=== PATIENT | female | born 1940 | race Caucasian/White ===

== ENCOUNTER 2017-06-06 13:54 | Emergency (ER) | payer MEDICARE ==
[2017-06-06 14:34] VITALS: BP 142/90
--- NOTE | 2017-06-06 15:51 | RAD ---
HISTORY: Leg edema COMPARISONS: September 12, 2015 VIEWS: 4: Frontal dual-energy and lateral views of the chest. FINDINGS: CARDIOMEDIASTINAL SILHOUETTE: The aorta is tortuous. This is stable. The cardiomediastinal silhouette is otherwise unremarkable. KE: The ke are normal. PLEURA: The costophrenic angles are sharp. No pleural abnormalities are noted. LUNG PARENCHYMA: The lungs are clear. ABDOMEN: The upper abdomen is clear. There is no subphrenic gas. BONES AND SOFT TISSUES: No bone or soft tissue abnormalities are noted. OTHER: None. IMPRESSION: NO ACTIVE CARDIOPULMONARY DISEASE.
--- NOTE | 2017-06-06 15:56 | UC ---
Lower Extremity/Ankle HPI - HPI Summary HPI Summary: 77 yo female with mildly painful edema of feet and ankles x 3 weeks no CP or SOB unsure it she has gained wt - History of Current Complaint Chief Complaint: UCLowerExtremity Stated Complaint: SWOLLEN FEET Time Seen by Provider: 06/06/17 15:13 Hx Obtained From: Patient Hx Last Menstrual Period: post menopausal Onset/Duration: Gradual Onset, Lasting Weeks Severity Initially: Mild Severity Currently: Moderate Pain Intensity: 2 Pain Scale Used: 0-10 Numeric Aggravating Factor(s): Standing, Ambulation Alleviating Factor(s): Elevation Able to Bear Weight: Yes - Allergies/Home Medications Allergies/Adverse Reactions: Allergies Allergy/AdvReac Type Severity Reaction Status Date / Time Lisinopril Allergy Unknown Verified 06/06/17 14:17 Reaction Details Statins Allergy Unknown Verified 06/06/17 14:17 Reaction Details ENVIRONMENTAL/SEASONAL Allergy Congestion Uncoded 06/06/17 14:17 HAYFEVER Home Medications: Home Medications Acetaminophen [8 Hour Arthritis Pain Rel] 650 mg PO Q8HR PRN 06/06/17 [History Confirmed 06/06/17] Calcium W/ Magnesium [Calcium Magnesium 750] 2 tab PO DAILY WITH MEAL 06/06/17 [ History Confirmed 06/06/17] DULoxetine DR CAP* [Cymbalta CAP*] 30 mg PO DAILY 06/06/17 [History Confirmed ] PMH/Surg Hx/FS Hx/Imm Hx Previously Healthy: Yes - 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 CATARCATS SURGERY BOTH. TONSILECTOMY. 3 JOINT SURGERIES-HIPS AND KNEE - Family History Known Family History: Positive: Hypertension - Social History Alcohol Use: None Substance Use Type: None Smoking Status (MU): Never Smoked Tobacco - Immunization History Most Recent Influenza Vaccination: 2017 Most Recent Tetanus Shot: 2011 Most Recent Pneumonia Vaccination: 2014 Review of Systems Constitutional: Negative Skin: Negative Eyes: Negative ENT: Negative Respiratory: Negative Cardiovascular: Negative Gastrointestinal: Negative Genitourinary: Negative Motor: Negative Neurovascular: Negative Musculoskeletal: Edema Neurological: Negative Psychological: Negative Is Patient Immunocompromised?: No All Other Systems Reviewed And Are Negative: Yes Physical Exam Triage Information Reviewed: Yes Appearance: Well-Appearing, No Pain Distress, Well-Nourished, Other: - BMI 43 Vital Signs: Initial Vital Signs Temp 97.9 F 06/06/17 14:24 Pulse 103 06/06/17 14:24 Resp 18 06/06/17 14:24 BP 142/90 06/06/17 14:24 Pulse Ox 95 06/06/17 14:24 Vital Signs Reviewed: Yes Eyes: Positive: Conjunctiva Clear ENT: Positive: Hearing grossly normal, Uvula midline. Negative: Nasal congestion, Nasal drainage Neck: Positive: Supple, Nontender, No Lymphadenopathy, Other: - no JVD Respiratory: Positive: Lungs clear, Normal breath sounds, No respiratory distress, No accessory muscle use Cardiovascular: Positive: RRR, No Murmur Musculoskeletal: Positive: Edema @ - pre tibial edema Neurological: Positive: Alert Psychological Exam: Normal Skin Exam: Normal Diagnostics - Radiology No standard instances Xray Interpretation: No Acute Changes Radiology Interpretation Completed By: Radiologist Lower Extremity Course/Dx - Differential Dx/Diagnosis Provider Diagnoses: lower extremity edema of uncertain cause Discharge - Discharge Plan Condition: Stable Disposition: HOME Prescriptions: Furosemide TAB* [Lasix TAB*] 20 mg PO DAILY #5 tab Patient Education Materials: Edema (ED) Referrals: Soraya Hitchcock MD [Primary Care Provider] - 3 Days Additional Instructions: blood work pending TO ER FOR NEW OR WORSENING SYMTPOMS
[2017-06-06 18:56] LABS: BUN/Creatinine Ratio 28.2 (8-20); Calcium 9.3 mg/dL (8.6-10.3); EGFR African American 92.6 (>60); Globulin 2.3 g/dL (2-4); Potassium 4.5 mmol/L (3.5-5.0); Total Bilirubin 0.3 mg/dL (0.2-1.0); Total Protein 6.3 g/dL (6.4-8.9)
--- NOTE | 2017-06-07 08:19 | UC ---
Progress - Progress Note Progress Note: 06/07/17: CMP out of normal range included: 28.2 BUN/Creatinine and low (minimally) Total Protein. Patient scheduled for followup. On five days of low dose Lasix. Potassium is within normal limits at 4.5. CALL PATIENT TO INFORM HER THAT LAB RESULTS SHOWED A COUPLE OF READINGS THAT WERE SLIGHTLY OUT OF NORMAL RANGE BUT NOTHING THAT COULDN'T WAIT AND BE DISCUSSED WITH HER PROVIDER WITHIN THE NEXT 5 DAYS. CHECK ON EDEMA AND BREATHING. FOLLOW UP NOW IF ANY ACUTE PROBLEMS. Cedrick Denson MD
== END 2017-06-06 15:52 | disposition home or self-care (01) ==
LOC: UCEAST 13:54
DX: R60.9 Edema, unspecified (principal)
CPT/HCPCS: 36415; 71020; 80053; 99212; G0463

== ENCOUNTER 2017-12-17 07:30 | Inpatient (IN) | payer MEDICARE ==
--- NOTE | 2017-12-05 21:48 | HP ---
PREOPERATIVE HISTORY AND PHYSICAL: DATE OF ADMISSION/SURGERY: 12/17/17 DATE OF OFFICE VISIT: 12/04/17 ATTENDING SURGEON: Dr. Daisy Gavin.* (DICTATED BY LUCY CONSTANTINO) PROCEDURE: Left total shoulder reverse. CHIEF COMPLAINT: Left shoulder. HISTORY OF PRESENT ILLNESS: Rochelle is a 77-year-old female, who presents to the clinic for left shoulder pain due to end-stage osteoarthritis. She has failed conservative measures to include injections and has therefore agreed to undergo a left total shoulder reverse on 12/17/[address] Gavin. PAST MEDICAL HISTORY: History of DVT after a fall in May 2017, she went off blood thinners 3 months ago in August; hypertension; osteoarthritis; colon polyps; glucose intolerance; bipolar disorder; history of shingles; carotid disease; incontinence. 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 The patient denies prior complications with anesthesia. MEDICATIONS: 1. Ketoconazole 2% apply thin film twice daily. 2. Nystop 100,000 units/g apply twice daily to affected areas. 3. Divalproex 250 mg 3 times by mouth at bedtime. 4. Madeline root 250 mg 1 to 2 daily as needed for gas and abdominal pain. 5. Losartan potassium/hydrochlorothiazide 50/12.5, take 1 daily. 6. Tylenol 8 Hour 650 mg as needed. 7. Duloxetine HCl 30 mg 1 tab daily. ALLERGIES: LISINOPRIL, SIMVASTATIN. FAMILY HISTORY: Denies pertinent family history. SOCIAL HISTORY: She is right-hand dominant. She denies smoking, alcohol, or illegal drug use. REVIEW OF SYSTEMS: A 14-point review of systems was reviewed with the patient. Positive for current complaint and history of DVT, otherwise negative. She denies fevers, chills, chest pain, shortness of breath, history of PE, history of bleeding disorder, history of MRSA. PHYSICAL EXAMINATION GENERAL: A 77-year-old well-developed, well-nourished female, in no acute distress, alert and oriented x3. Appropriate mood and affect. Appropriate balance and coordination of the upper extremities. VITAL SIGNS: Height 61, weight 232, blood pressure 126/70, respiratory rate 20 , temperature 98.3, BMI 43.8. HEENT: Normocephalic, atraumatic. PERRLA. Throat clear. NECK: Supple. PULMONARY: Lungs are clear to auscultation bilaterally. No wheezing, rhonchi, or rales. CARDIO: Regular rate and rhythm. S1 and S2. No murmurs, gallops, or rubs. No edema. ABDOMEN: Positive bowel sounds, soft, nontender. NEURO: Alert and oriented x3. Cranial nerves grossly intact. Sensation intact to light touch. MUSCULOSKELETAL: Left upper extremity: Skin is intact. No warmth or erythema. Forward flexion to 140, abduction to 100, external rotation to 15, internal rotation to the posterior hip. +4/5 strength to rotator cuff testing with pain. Positive impingement, Speed, Das-Michael, [place]. +2 radial pulse. Sensation intact to light touch distally. +5/5 psychodramatist strength. DIAGNOSTIC STUDIES: Multi-view x-rays of the left shoulder revealed severe end - stage glenohumeral joint osteoarthritis with [id number] changes. IMPRESSION: Left shoulder end-stage osteoarthritis. PLAN: The patient is scheduled to undergo a left total shoulder reverse with Dr. Gavin on 12/17/17. CT scan was ordered for preoperative planning. Percocet will be used for postop pain management. The patient has a history of prior DVT; therefore, she will be placed on 40 mg of Lovenox subcu x4 weeks postoperatively for DVT prophylaxis. She will follow up 10 to 14 days postop for followup and suture removal. She has an appointment with her PCP on , so we are awaiting a PCP clearance. LUCY CONSTANTINO [id number]/[facility] #: [id number] JUAN
[~2017-12-17 07:30] MED LIST: Acetaminophen IV 1GM/100ML * 1,000 MG/100 ML VIAL IVPB ONE; Buffered Lidocaine 0.9% SYRIN* 5 ML/SYR SYRINGE INTRADERM ONE; Dexamethasone IV* 4 MG/ML 1 ML (4 MG) IV SLOW PU ONE
[2017-12-17] MEDS ORDERED: fentaNYL* 50 MCG/ML 2 ML VIAL (100 MCG VIAL) ONE ×2 (08:34→14:50)
[2017-12-17] MEDS ORDERED: Propofol* 10 MG/ML 20 ML BTL IV PUSH ONE (08:34)
[2017-12-17] MEDS ORDERED: Lidocaine 2% PF * 5 ML VIAL ONE (08:34)
[2017-12-17] MEDS ORDERED: Midazolam* 1 MG/ML 2 ML VIAL (2 MG) ONE (08:34)
[2017-12-17] MEDS ORDERED: Rocuronium* 10 MG/ML VIAL ONE ×2 (08:35→12:12)
[2017-12-17] MEDS ORDERED: Dexamethasone IV* 4 MG/ML 1 ML (4 MG) ONE (09:14)
[2017-12-17] MEDS ORDERED: Buffered Lidocaine 0.9% SYRIN* 5 ML/SYR SYRINGE ONE (09:14)
[2017-12-17] MEDS ORDERED: ceFAZolin 2 GM PREMIX (*) 2 GM/50 ML BAG IVPB ONE (09:14)
[2017-12-17] MEDS ORDERED: Acetaminophen IV 1GM/100ML * 100 ML ONE (09:16)
[2017-12-17] MEDS ORDERED: Ondansetron ODT TAB* 4 MG PO PRN ×2 (11:09→14:03)
[2017-12-17] MEDS ORDERED: Naloxone* 0.4 MG/ML 1 ML VIAL IV PRN (11:09)
[2017-12-17] MEDS ORDERED: PROCHLORPERAZINE INJ 5 MG/ML 2 ML VIAL IV PRN (11:09)
[2017-12-17] MEDS ORDERED: oxyCODONE/Acetamin 5/325 MG* TAB PO PRN (11:09)
[2017-12-17] MEDS ORDERED: Bupivacaine 0.5% PF 10 ML VIAL INJ ONE (11:14)
[2017-12-17] MEDS ORDERED: HYDROmorphone INJ* 0.5 MG/0.5 ML SYRINGE ONE ×2 (11:57→15:15)
[2017-12-17] MEDS ORDERED: Famotidine IV* 10 MG/ML 2 ML (20 mg) ONE (12:01)
[2017-12-17] MEDS ORDERED: Ketorolac INJ* 30 MG/ML 1 ML VIAL ONE (13:24)
[2017-12-17] MEDS ORDERED: Temazepam CAP* 15 MG PO PRN (14:03)
[2017-12-17] MEDS ORDERED: Cyclobenzaprine TAB* 10 MG PO PRN (14:03)
[2017-12-17] MEDS ORDERED: diPHENhydraMINE IV* 50 MG/ML 1 ml VIAL (BENADRYL) IV PRN (14:03)
[2017-12-17] MEDS ORDERED: Bisacodyl SUPP* 10 MG SUPP PR PRN (14:03)
[2017-12-17] MEDS ORDERED: Polyethylene Glycol 3350* 17 GM PACKET PO PRN (14:03)
[2017-12-17] MEDS ORDERED: Ondansetron TAB* 4 MG PO PRN (14:03)
[2017-12-17] MEDS ORDERED: diPHENhydraMINE PO* 25 MG PO PRN (14:03)
[2017-12-17] MEDS ORDERED: Morphine VIAL* 4 MG/ML VIAL (1 ml vial) IV PRN (14:03)
[2017-12-17] MEDS ORDERED: Acetaminophen TAB* 325 MG PO PRN (14:03)
[2017-12-17] MEDS: fentaNYL* 50 MCG/ML 2 ML VIAL (100 MCG VIAL) IV PRN ×2 (14:51→15:14)
[2017-12-17] MEDS ORDERED: oxyCODONE TAB* 5 MG TAB ONE (14:58)
--- NOTE | 2017-12-17 14:59 | RAD ---
Indication: Postop LEFT total shoulder replacement Comparison: December 11, 2017 CT Technique: Internal rotation AP, external rotation Grashey, scapular Y, axillary views LEFT shoulder Report: Reversed LEFT glenohumeral joint prosthesis in place with normal alignment. Negative for periprosthetic fracture. Surgical drain in place. Overlying soft tissue edema and subcutaneous emphysema. IMPRESSION: #. Unremarkable immediate postop appearance following LEFT glenohumeral joint replacement.
[2017-12-17] MEDS: oxyCODONE TAB* 5 MG TAB PO PRN ×2 (15:00→15:01)
[2017-12-17] MEDS: HYDROmorphone INJ* 1 MG/ML CARPUJECT SYRINGE IV PRN ×2 (15:46→16:21)
[2017-12-17] MEDS: oxyCODONE/Acetamin 5/325 MG* TAB PO PRN (19:28)
[2017-12-17] MEDS: ceFAZolin 1 GM in Dextrose (*) 1 GM/50 ML BAG IVPB SCH (19:34)
[2017-12-17] MEDS: Divalproex DR TAB(*) 250 MG PO SCH (21:30)
[2017-12-17] MEDS: Docusate CAP* 100 MG PO SCH (21:33)
[2017-12-18] MEDS: ceFAZolin 1 GM in Dextrose (*) 1 GM/50 ML BAG IVPB SCH ×2 (03:33→11:42)
[2017-12-18] MEDS: oxyCODONE/Acetamin 5/325 MG* TAB PO PRN ×4 (03:36→21:48)
[2017-12-18 06:35] LABS: Hematocrit 30 % (35-47); Hemoglobin 10.1 g/dl (12.0-16.0); Mean Platelet Volume 9.6 um3 (7.4-10.4); Platelet Count 183 10^3/ul (150-450)
[2017-12-18] MEDS: Losartan TAB* 25 MG PO SCH (08:59)
[2017-12-18] MEDS: Hydrochlorothiazide TAB* 25 MG PO SCH (08:59)
[2017-12-18] MEDS: DULoxetine DR CAP* 30 MG CAP.DR PO SCH (08:59)
[2017-12-18] MEDS: Docusate CAP* 100 MG PO SCH ×2 (09:00→21:43)
[2017-12-18] MEDS: Enoxaparin(*) 40 MG/0.4 ML SYR SUBCUT SCH (11:42)
--- NOTE | 2017-12-18 13:04 | OP ---
Multiple blanks due to poor sound quality. CC: PCP, Soraya Hitchcock MD * DATE OF OPERATION: 12/17/17 - DATE OF : 44 SURGEON: Daisy Gavin MD MICRO COMPUTER DATA PROCESSOR: LUCY Nieto, and Alta Gonzalez. ANESTHESIOLOGIST: Dr. Krishnan. ANESTHESIA: General. PRE-OP DIAGNOSIS: Left shoulder endstage arthritis with rotator cuff insufficiency. POST-OP DIAGNOSIS: Left shoulder endstage arthritis with rotator cuff insufficiency. OPERATIVE PROCEDURE: Left shoulder reverse arthroplasty. COMPLICATIONS: None. IMPLANTS USED: Aequalis Reversed II standard glenosphere size 36, Reversed II threaded post baseplate size 25 x 25 with the appropriate length screws x3, Ascend Flex size 4B humeral stem with a standard reverse tray and mm poly , and output drain x1. ESTIMATED BLOOD LOSS: 200. DISPOSITION: Stable. INDICATIONS: Rochelle Alanis is a 77-year-old female with endstage arthritis in the left shoulder with rotator cuff arthropathy. She has failed conservative management and has elected to proceed with surgical treatment. Risks and benefits of the surgery included but are not limited to bleeding, infection, damage to nerves, vessels, surrounding structures, wound nonhealing problems, persistent pain, dislocation, fracture, need for further surgery, risks of anesthesia, failure of hardware, risks of anesthesia, scarring, stiffness, persistent pain, inability to range her shoulder, risk of blood clot. She underwent medical risk optimization and has elected to proceed with surgery. DESCRIPTION OF PROCEDURE: The patient was greeted in the preoperative area by the attending surgeon. Correct extremity was marked and consent was confirmed. The patient was brought back to the operating suite where she was placed in supine position on the operating table. She underwent general anesthesia with endotracheal intubation after which she was appropriately positioned in the lazy beach chair position. The left shoulder was then appropriately positioned with a bump under her scapula. The left shoulder was then prepped and draped in the usual sterile fashion beginning with chlorhexidine soap, scrub, alcohol wipe, and a final prep with ChloraPrep. After appropriate surgical pause indicating side, site, procedure, and administration of antibiotics, the deltopectoral incision was made sharply with a #15 blade. The soft tissues were carefully dissected to expose the deltopectoral fascia, deltoid as well as the cephalic vein, which was taken laterally and the pec medially. The clavipectoral fascia was identified. The coracoid was identified. The CA ligament was released. The lateral aspect of the short head of the biceps' adhesions to the subscap were release. There was a large cyst that was present. This appeared to be a synovial cyst with significant synovial fluid. The pec insertion was identified. The proximal 1.5 cm was then released. The biceps was tenotomized, taken proximally to identify the subscap and there was a large synovial cyst in the way. This was debrided back and the fluid was drained. Subscap was then released; it was very small, diminutive quality, but it was tagged with a #5 Ethibond suture. The capsule was released with this. The humeral head was exposed. There was a large anterior inferior osteophyte. There were multiple loose bodies. There were also 2 loose bodies along the glenoid which was better visualized later. The humeral head was deformed. There was some portion of the rotator cuff still present and the infraspinatus was then removed. The head was then gently externally rotated and brought through the wound. The head was exposed and the neck cut guide was then used to gently visualize the cut, which was made using sagittal saw. At this point, the canal was then identified and opened with the central reamer. The sizing canal guides were then obtained and a size 4 was found appropriate. Reaming was taken up sequentially, beginning with a starting reamer to about a size 4 implant, which was chosen. The excess bone was then reamed away. Protection plate was placed and the attention was directed to the glenoid. With attention to the glenoid, this was slightly challenging given the patient' s body habitus; however, glenoid was carefully exposed. It was obvious there was a posterior wear. No synovitis present. There were multiple little loose bodies present as well as two anterior loose bodies which may have been attached to the labrum anteriorly. These were removed carefully. The remainder of the subscap was mobilized. The anterior-inferior labrum was then carefully released of whatever was remaining of it to expose the entirety of the glenoid, which had grade- 4 change and some obvious deformity. The glenoid guide was then placed inferiorly along the glenoid and the guidepin was placed once the appropriate position was identified. This was then reamed with a size 25-mm reamer and then hand reamed with a reamer. A size 8-mm cannulated drill was then drilled and a 6.5 mm drill was then drilled to a depth of about 25 mm which was consistent with preoperative templating as she had a thin . At this point, the screw hole was tapped. Bone graft from humeral head was then placed into the wound posteriorly and packed with having more wear posteriorly. Final implant was chosen which was 25 x 25 baseplate. This was screwed into position with excellent purchase. Three interlocking screws were then drilled and filled the appropriate length. The glenosphere was then impacted into position and secured with a setscrew. After this was completed, attention was directed to the humerus again. The humerus was brought through the wound. The stem was assessed again to make sure it had not loosened. Once the stem was appropriately seated, a trial baseplate and spacer were then attached. The shoulder was then reduced and the shoulder was taken through range of motion. I was able to forward flex to approximately 145 degrees, abduct to 150 degrees, adduct to 90 degrees, externally rotate to about 50 degrees, internal rotate to the posterior hip. At this point, final implants were chosen and they were prepared on the back table by the attending surgeon. were placed in the humerus and tagged with 5 Ethibond suture for subscap closure. The implants were impacted into position by the attending surgeon and then gently impacted into the humerus. This was with a 20- degree offset of retroversion. The shoulder was then reduced, taken through range of motion, was found to be symmetric with appropriate amount of shuck. The wounds were copiously irrigated with sterile saline. The subscap was then closed using horizontal mattress configuration. The wound was irrigated again, an intraarticular drain was then placed and the deltopectoral fascia was closed with #2 Ethibond and then irrigation again and skin was then closed in layers with 2-0 Vicryl and 3-0 Monocryl. Sterile dressings were applied, Cryo/Cuff, and a sling were applied. She was awoken from anesthesia and transferred to PACU in stable condition. POSTOPERATIVE PLAN: She will be nonweightbearing. She will wear sling for 6 weeks. She will start physical therapy tomorrow. She will begin elbow, hand, and wrist active range of motion tomorrow. She will be on 24 hours of postoperative antibiotics. DVT prophylaxis while she is inhouse and discharged none as she is not on any at baseline. We will see the patient back in 2 weeks. We will potentially discharge from the hospital on postop day 1 if she meets criteria. Postoperative x-rays will be assessed in the PACU. Postoperative x-rays were reviewed and found to be acceptable. [id number]/[facility] #: [id number] MTDJud
--- NOTE | 2017-12-18 15:05 | PN ---
Progress Note - Progress Note Date of Service: 12/18/17 SOAP: Subjective: Ms. Alanis is a 77 yo female who is PO day 1 s/p left reverse total shoulder arthroplasty with Dr. Gavin on 12/17/17. She states she is having some pain but feels pain control adequate. She does not feel she is safe to go home as has difficulty with ADLs at baseline and lives alone. She has worked with PT today who also recommended d/c to rehab facility. She denies any numbness, tingling, SOB, chest pain, nausea, vomiting. Objective: Vital Signs Temp 97.9 F 12/18/17 07:57 Pulse 81 12/18/17 07:57 Resp 18 12/18/17 14:24 BP 112/55 12/18/17 07:57 Pulse Ox 94 12/18/17 07:57 Intake & Output 12/17/17 12/18/17 12/18/17 18:59 06:59 18:59 Intake Total 1400 1267 480 Output Total 650 350 Balance 1400 617 130 Weight 249 lb 12.8 oz Intake: IV Fluids 1400 987 LR 1400 987 IVPB 50 ABX - CEFAZOLIN 50 Oral 230 480 Output: Hemovac Amount #1 250 Urine 400 350 Laboratory Results - last 24 hr 12/18/17 12/18/17 05:54 05:54 Hgb 10.1 L Hct 30 L Plt Count 183 MPV 9.6 Sodium 138 Potassium 4.6 Chloride 103 Carbon Dioxide 27 Anion Gap 8 BUN 35 H Creatinine 0.97 H Est GFR ( Amer) 67.7 Est GFR (Non-Af Amer) 56.0 BUN/Creatinine Ratio 36.1 H Glucose 118 H Calcium 8.4 L General: WN, WD, NAD, AO, resting comfortably in bed. LUE: Drain with minimal output, pulled today, patient tolerated well. Dressing C /D/I. No erythema, warmth, proximal or distal to dressing. Able to move fingers , wrist without pain. 2+ radial pulse, SITLT. Assessment: POD left reverse total shoulder arthroplasty. Plan: - Continue with current pain management - Continue Lovenox for DVT prophylaxis - Continue PT/OT - Plan d/c to [facility] when able
--- NOTE | 2017-12-18 17:07 | PN ---
Progress Note - Progress Note Date of Service: 12/18/17 SOAP: Subjective: Pt seen and examined. No complaints. Unable to meet criteria for d/c. Objective: Temp Pulse Resp BP Pulse Ox 97.9 F 81 16 112/55 94 12/18/17 07:57 12/18/17 07:57 12/18/17 16:34 12/18/17 07:57 12/18/17 07:57 NAD. AAOx3. pleasant LUE: SILT grossly. able to flex/ext digits. warm and well perfused. Laboratory Results - last 24 hr 12/18/17 12/18/17 05:54 05:54 Hgb 10.1 L Hct 30 L Plt Count 183 MPV 9.6 Sodium 138 Potassium 4.6 Chloride 103 Carbon Dioxide 27 Anion Gap 8 BUN 35 H Creatinine 0.97 H Est GFR ( Amer) 67.7 Est GFR (Non-Af Amer) 56.0 BUN/Creatinine Ratio 36.1 H Glucose 118 H Calcium 8.4 L Assessment: POD#1 from L shoulder reverse Plan: elbow to be visible at all times. no active ROM of shoulder passive ROM as per guidelines. PT/OT post op abx to finish at 24 hours d/c to snf when able dressing change tomorrow
[2017-12-18] MEDS: Divalproex DR TAB(*) 250 MG PO SCH (21:43)
[2017-12-19] MEDS: oxyCODONE/Acetamin 5/325 MG* TAB PO PRN ×2 (02:52→08:04)
[2017-12-19 06:05] LABS: Hematocrit 27 % (35-47); Hemoglobin 9.1 g/dl (12.0-16.0); Mean Platelet Volume 9.6 um3 (7.4-10.4); Platelet Count 157 10^3/ul (150-450)
[2017-12-19] MEDS: Docusate CAP* 100 MG PO SCH ×2 (08:04→22:53)
[2017-12-19] MEDS: Magnesium Hydroxide LIQ* 30 ML UDC PO PRN (08:04)
[2017-12-19] MEDS: DULoxetine DR CAP* 30 MG CAP.DR PO SCH (08:04)
[2017-12-19] MEDS: Hydrochlorothiazide TAB* 25 MG PO SCH (08:05)
--- NOTE | 2017-12-19 09:00 | PN ---
Progress Note - Progress Note Date of Service: 12/19/17 SOAP: Subjective: Ms. Alanis is a 77 yo female who is PO day 2 s/p left reverse total shoulder arthroplasty with Dr. Gavin on 12/17/17. Lying comfortably in bed. She denies any numbness, tingling, SOB, chest pain, nausea, vomiting. VSS overnight. Objective: Vital Signs Temp 97.8 F 12/19/17 07:20 Pulse 81 12/19/17 07:20 Resp 18 12/19/17 08:04 BP 103/56 12/19/17 07:20 Pulse Ox 95 12/19/17 07:20 Intake & Output 12/18/17 12/19/17 12/19/17 18:59 06:59 18:59 Intake Total 480 550 Output Total 550 300 Balance -70 250 Intake: Oral 480 550 Output: Urine 550 300 Other: Estimated Void Large # Voids 1 1 Laboratory Results - last 24 hr 12/19/17 05:51 Hgb 9.1 L Hct 27 L Plt Count 157 MPV 9.6 General: WN, WD, NAD, AO LUE: Dressing C/D/I, incision without erythema, warmth, drainage. One small skin tear just distal to incision no erythema, warmth, drainage. Able to flex/ extend at wrist, fingers, elbow. 2+ radial pulse, SITLT. Assessment: POD #2 left reverse total shoulder arthroplasty. Plan: - Elbow to be visible at all times. - No active ROM of shoulder, passive ROM as per guidelines. - Continue PT/OT - Continue Lovenox for DVT prophylaxis - Continue current pain medications - Post op abx to completed - D/C to SNF - CR on Friday. - Dressing change today
[2017-12-19] MEDS: Losartan TAB* 25 MG PO SCH (09:37)
[2017-12-19] MEDS: Enoxaparin(*) 40 MG/0.4 ML SYR SUBCUT SCH (12:47)
[2017-12-19] MEDS: oxyCODONE TAB* 5 MG TAB PO PRN ×2 (12:47→20:00)
--- NOTE | 2017-12-19 16:52 | PN ---
Progress Note - Progress Note Date of Service: 12/19/17 Note: Pt seen and examined. pain controlled. denies sob cp no PT for shoulder yet dressing changed Temp Pulse Resp BP Pulse Ox 97.6 F 103 16 98/82 95 12/19/17 15:27 12/19/17 15:27 12/19/17 15:29 12/19/17 15:27 12/19/17 15:27 NAD. LUE dressing in place. sling in place. silt grossly with brisk cap refill. able to flex/ext digits A/P POD#2 from L shoulder reverse PT for shoulder to start this weekend must come out of sling 4 times a day to work on elbow and wrist ROM passive FF to 90, abd to 90, ER to 30 as tolerated. dispo to SNF when able
[2017-12-19] MEDS: Divalproex DR TAB(*) 250 MG PO SCH (22:53)
[2017-12-20] MEDS: oxyCODONE/Acetamin 5/325 MG* TAB PO PRN ×2 (06:01→21:14)
[2017-12-20 06:03] LABS: Hematocrit 26 % (35-47); Hemoglobin 8.8 g/dl (12.0-16.0); Mean Platelet Volume 9.5 um3 (7.4-10.4); Platelet Count 167 10^3/ul (150-450)
--- NOTE | 2017-12-20 08:42 | PN ---
Progress Note - Progress Note Date of Service: 12/20/17 SOAP: Subjective: POD #3 Left total shoulder reverse. Doing well, pain with movement but tolerable at rest. Denies CP, SOB, f/c, n/v or lightheadedness. Objective: Vitals: Temp Pulse Resp BP Pulse Ox 97.5 F 101 18 120/68 96 12/20/17 07:33 12/20/17 07:33 12/20/17 07:33 12/20/17 07:33 12/20/17 07:33 Gen: A&Ox3, NAD at rest sitting in bed LUE: Dressing C/D/I, +f/e at elbow, wrist and hand. N/V intact Labs: Laboratory Results - last 24 hr 12/20/17 05:22 Hgb 8.8 L Hct 26 L Plt Count 167 MPV 9.5 Assessment: POD #3 Left total shoulder reverse Plan: Awaiting placement at [facility] Acute blood loss anemia, will continue to monitor. Pt currently asymptomatic PT/OT
[2017-12-20] MEDS: oxyCODONE TAB* 5 MG TAB PO PRN ×2 (10:19→16:38)
[2017-12-20] MEDS: DULoxetine DR CAP* 30 MG CAP.DR PO SCH (10:19)
[2017-12-20] MEDS: Losartan TAB* 25 MG PO SCH (10:19)
[2017-12-20] MEDS: Hydrochlorothiazide TAB* 25 MG PO SCH (10:19)
[2017-12-20] MEDS: Docusate CAP* 100 MG PO SCH ×2 (10:19→21:14)
[2017-12-20] MEDS: Enoxaparin(*) 40 MG/0.4 ML SYR SUBCUT SCH (13:10)
[2017-12-20] MEDS: Divalproex DR TAB(*) 250 MG PO SCH (21:14)
[2017-12-20] MEDS: Magnesium Hydroxide LIQ* 30 ML UDC PO PRN (21:15)
[2017-12-21] MEDS: oxyCODONE/Acetamin 5/325 MG* TAB PO PRN ×4 (02:58→18:10)
[2017-12-21 05:44] LABS: Hematocrit 26 % (35-47); Hemoglobin 8.7 g/dl (12.0-16.0); Mean Platelet Volume 9.5 um3 (7.4-10.4); Platelet Count 196 10^3/ul (150-450)
--- NOTE | 2017-12-21 08:05 | PN ---
Progress Note - Progress Note Date of Service: 12/21/17 SOAP: Subjective: POD #4 Left total shoulder reverse, doing well. States that pain continues to improve. Denies CP/SOB, f/c, n/v. Objective: Vitals: Temp Pulse Resp BP Pulse Ox 98.1 F 85 16 148/66 95 12/21/17 03:26 12/21/17 03:26 12/21/17 05:33 12/21/17 03:26 12/21/17 03:26 Gen: A&Ox3, NAD at rest sitting in bed LUE: Incision C/D/I, mild ecchymosis and edema to medial upper arm/axilla. +f/e at elbow, wrist and hand. N/V intact Labs: Laboratory Results - last 24 hr 12/21/17 05:02 Hgb 8.7 L Hct 26 L Plt Count 196 MPV 9.5 Assessment: POD #4 Left total shoulder reverse Plan: PT/OT for ROM, ADLs Lovenox for DVT ppx while in hospital Cont current pain medication Pt with acute blood loss anemia, stable and asymptomatic D/C to [facility] tomorrow
[2017-12-21] MEDS: Docusate CAP* 100 MG PO SCH ×2 (08:12→19:44)
[2017-12-21] MEDS: Losartan TAB* 25 MG PO SCH (08:12)
[2017-12-21] MEDS: Hydrochlorothiazide TAB* 25 MG PO SCH (08:12)
[2017-12-21] MEDS: DULoxetine DR CAP* 30 MG CAP.DR PO SCH (08:13)
[2017-12-21] MEDS: Enoxaparin(*) 40 MG/0.4 ML SYR SUBCUT SCH (12:15)
[2017-12-21] MEDS: Divalproex DR TAB(*) 250 MG PO SCH (19:44)
[2017-12-22 05:50] LABS: Hematocrit 25 % (35-47); Hemoglobin 8.4 g/dl (12.0-16.0); Mean Platelet Volume 9.2 um3 (7.4-10.4); Platelet Count 211 10^3/ul (150-450)
--- NOTE | 2017-12-22 07:52 | PN ---
Progress Note - Progress Note Date of Service: 12/22/17 SOAP: Subjective: []Patient seen at bedside. She is comfortable and without left shoulder pain, CP , SOB, dizziness, feeling of fever or chills. Objective: []General: Well appearing, NAD LUE: Dressing CDI. Able to wiggle fingers, flexion and extension intact digits 1 -5, thumbs up and okay sign intact, sensation intact digits 1-5. Upper arm soft and compressible. Vital Signs Temp 98.5 F 12/22/17 07:25 Pulse 87 12/22/17 07:25 Resp 16 12/22/17 07:25 BP 102/46 12/22/17 07:25 Pulse Ox 95 12/22/17 07:25 Intake & Output 12/21/17 12/22/17 12/22/17 18:59 06:59 18:59 Intake Total 650 800 Output Total 100 300 Balance 550 500 Intake: Oral 650 800 Output: Urine 100 300 Other: Estimated Void Large # Bowel Movements 0 # Voids 1 Laboratory Last Values Hgb 8.4 g/dl (12.0-16.0) L 12/22/17 05:13 Hct 25 % (35-47) L 12/22/17 05:13 Plt Count 211 10^3/ul (150-450) 12/22/17 05:13 MPV 9.2 um3 (7.4-10.4) 12/22/17 05:13 Sodium 138 mmol/L (135-145) 12/18/17 05:54 Potassium 4.6 mmol/L (3.5-5.0) 12/18/17 05:54 Chloride 103 mmol/L (101-111) 12/18/17 05:54 Carbon Dioxide 27 mmol/L (22-32) 12/18/17 05:54 Anion Gap 8 mmol/L (2-11) 12/18/17 05:54 BUN 35 mg/dL (6-24) H 12/18/17 05:54 Creatinine 0.97 mg/dL (0.51-0.95) H 12/18/17 05:54 Est GFR ( Amer) 67.7 (>60) 12/18/17 05:54 Est GFR (Non-Af Amer) 56.0 (>60) 12/18/17 05:54 BUN/Creatinine Ratio 36.1 (8-20) H 12/18/17 05:54 Glucose 118 mg/dL (70-100) H 12/18/17 05:54 Calcium 8.4 mg/dL (8.6-10.3) L 12/18/17 05:54 Assessment: [] POD #5 Left total shoulder reverse Plan: PT/OT Lovenox for DVT ppx while in hospital Cont current pain medication Plan for D/C to [facility] today
[2017-12-22] MEDS: Losartan TAB* 25 MG PO SCH (08:37)
[2017-12-22] MEDS: Hydrochlorothiazide TAB* 25 MG PO SCH (08:38)
[2017-12-22] MEDS: DULoxetine DR CAP* 30 MG CAP.DR PO SCH (08:38)
[2017-12-22] MEDS: Docusate CAP* 100 MG PO SCH (08:38)
[2017-12-22 11:34] VITALS: BP 116/45
--- NOTE | 2017-12-22 12:49 | DS ---
DISCHARGE SUMMARY: DATE OF ADMISSION: 12/17/17. DATE OF DISCHARGE: 12/22/17. PROVIDER: Dr. Gavin (dictated by LUCY Leiva). CHIEF COMPLAINT: 1. Left shoulder osteoarthritis. 2. Hypertension. 3. Osteoarthritis. 4. Colon polyps. 5. Glucose intolerance. 6. Bipolar disorder. 7. History of shingles. 8. History of DVT in May 2017. 9. Carotid disease. 10. Incontinence. DISCHARGE DIAGNOSES: 1. Status post left reverse total shoulder. 2. Hypertension. 3. Osteoarthritis. 4. Colon polyps. 5. Glucose intolerance. 6. Bipolar disorder. 7. History of shingles. 8. History of deep vein thrombosis in May 2017. 9. Carotid disease. 10. Incontinence. PROCEDURE: Left total shoulder reverse. CONSULTATIONS: Physical Therapy, Occupational Therapy. BRIEF HISTORY: Ms. Alains is a 77-year-old female who presented for left shoulder pain due to end-stage osteoarthritis. She failed conservative measures including injection and elected to undergo a left total shoulder reverse on 12/17/[address] Gavin. HOSPITAL COURSE: Ms. Alanis was [place] [facility] where she underwent a left total shoulder reverse arthroplasty. Postoperatively, she recovered on the short-stay surgical unit. She was very concerned about PT at home as she lives alone and is not stable at baseline due to a number of previous joint replacements. She was advanced to regular diet without difficulty and pain was well controlled with p.o. Percocet. She was restarted on her home medications. Labs and vital signs remained stable. She advanced with Physical Therapy, but had to be redirected frequently to continue to progress. DVT prophylaxis was managed with Lovenox in the hospital. PHYSICAL EXAMINATION: General: Well appearing, in no acute distress, sitting comfortably in a chair. Vital Signs: Temperature 98.5, pulse 87, respirations 16, blood pressure 102/46. Musculoskeletal: Left upper extremity dressing is clean, dry, and intact. Incision is intact with no purulent drainage or erythema or warmth. She is able to wiggle her fingers. Flexion and extension intact digits from 1 to 5. Thumbs up and okay sign intact. Sensation intact to digits 1 to 5. Upper arm soft and compressible. She is able to move her elbow with some flexion and extension. LABORATORY DATA: On date of discharge, hemoglobin 8.4, hematocrit 25%. RADIOGRAPHS: Postoperative radiographs show intact left total shoulder reverse hardware that is satisfactorily placed with no acute bony abnormalities. DISCHARGE MEDICATIONS: 1. Cymbalta 30 mg daily. 2. Losartan/hydrochlorothiazide 50/12.5 every morning. 3. Acetaminophen 650 one to two tablets every 8 hours as needed for pain or fever. 4. Madeline root 550 mg 1 to 2 caps every day. 5. Percocet 5/325 one to two tabs every 4 to 6 hours as needed for pain. CONDITION ON DISCHARGE: Stable. DISCHARGE INSTRUCTIONS: Mrs. Alanis is a 77-year-old female who is postoperative day 5, status post left total shoulder reverse arthroplasty, which was uncomplicated. She is medically and orthopedically stable for discharge to acute rehab facility. Labs and vital signs are stable. She will be started on her home medications. She will remain nonweightbearing on the left upper extremity. She will have Physical Therapy that has no active range of motion, but continue elbow, wrist, and hand pendulums 4 times a day, passive forward flexion to 90 degrees, abduction to 90 degrees, external rotation to 30 degrees as tolerated. She will take Percocet for pain control and take Colace 3 times a day as needed for constipation. She will follow up with Dr. Gavin in 8 to 10 days postop for incision check and suture removal. She was instructed to go to the ER if she develops chest pain or shortness of breath. She will call our office if she develops fever or increasing pain or increasing redness. LUCY LEIVA [id number]/[facility] #: [id number] MTDJud
== END 2017-12-22 14:20 | DRG 483 ==
LOC: AA 09:03 → SSU 14:03
PROVIDERS: ADMIT Orthopaedic Surgery; ATTEND Orthopaedic Surgery
PROC: 0RRK00Z Replacement of Left Shoulder Joint with Reverse Ball and Socket Synthetic Substitute, Open Approach (ICD-10-PCS; principal; 2017-12-17 10:45)
DX: M19.012 Primary osteoarthritis, left shoulder (principal); F31.81 Bipolar II disorder; D62 Acute posthemorrhagic anemia; I10 Essential (primary) hypertension; E74.39 Other disorders of intestinal carbohydrate absorption; Z96.643 Presence of artificial hip joint, bilateral; Z96.653 Presence of artificial knee joint, bilateral; F42.3 Hoarding disorder; F41.9 Anxiety disorder, unspecified; K21.9 Gastro-esophageal reflux disease without esophagitis; M25.712 Osteophyte, left shoulder; R32 Unspecified urinary incontinence; M71.312 Other bursal cyst, left shoulder; Z80.49 Family history of malignant neoplasm of other genital organs; Z88.8 Allergy status to other drugs, medicaments and biological substances; Z86.010 Personal history of colon polyps; Z86.19 Personal history of other infectious and parasitic diseases; Z86.718 Personal history of other venous thrombosis and embolism; Z82.5 Family history of asthma and other chronic lower respiratory diseases; Z98.42 Cataract extraction status, left eye; Z98.41 Cataract extraction status, right eye
CPT/HCPCS: 36415; 80048; 85014; 85018; 85049; A9270-GY; C1713; C1776; G8978-GP-CK; G8979-GP-CI; G8987-GO-CL; G8988-GO-CI; J0690; J1100; J1170; J1650; J1885; J2250; J2270; J2704; J3010

== ENCOUNTER 2019-02-27 11:31 | Emergency (ER) | payer MEDICARE ==
--- OUTSIDE RECORDS SUMMARY | 2019-02-27 11:36 | XMS REPORT | Continuity of Care Document ---
:1940 External Reference #:[id number] Author Name Soraya Hitchcock M.D. (transmitted by agent of provider Cass Mueller) Address [address], [place] [address] Care Team Providers Name Role Phone Soraya Hitchcock MD - Internal Care Team Information Bicycle Repairer Medicine Ely Cabrera MD - Obstetrics & Care Team Information Bicycle Repairer Gynecology Daisy Gavin MD - Orthopaedic Care Team Information Bicycle Repairer [phone] Surgery Lamberto Edgar MD - Gastroenterology Care Team Information Bicycle Repairer [phone] Luis Enrique Mock MD - Gastroenterology Care Team Information Bicycle Repairer Problems Active Problems Provider Date Essential hypertension Soraya Hitchcock M.D. Onset: 04/27/2015 Localized, primary osteoarthritis Jenn Sharp M.D. Onset: 08/02/2015 Deep venous thrombosis Soraya Hitchcock M.D. Onset: 06/19/2017 Note: 2016 and 2017 Prosthetic arthroplasty of shoulder Daisy Gavin MD Onset: 01/27/2018 Social History Type Date Description Comments Sex Unknown Tobacco Use Start: Unknown Never Smoked Cigarettes ETOH Use Drinks Alcoholic Beverages Rarely less than 1/week Tobacco Use Start: Unknown Patient has never smoked Smoking Status Reviewed: 02/09/19 Patient has never smoked Allergies, Adverse Reactions, Alerts Active Allergies Reaction Severity Comments Date Lisinopril Mild intolerance 12/06/2009 Simvastatin "terrible reaction" 06/14/2010 Inactive Allergies No Known Drug Allergy 12/06/2009 Medications Active Medications SIG Qnty Indications Ordering Provider Date Myrbetriq 1 by mouth every 30tabs R32 Soraya Hitchcock 02/09/2019 25mg Tablets day M.D. ER 24HR Suprep Bowel Prep Kit as directed 354ml Rosemarie Castle NP 08/31/2018 17.5-3.13-1.6GM/177ML Solution Xarelto 1 by mouth every 30tabs [facility], 03/18/2018 20mg Tablets day M.D. Ketoconazole apply thin film 60gm R21 [facility], 09/26/2017 2% Cream twice daily M.D. Nystop apply twice daily 60gm R21 [facility], 09/26/2017 021541Gzff/GM to affected areas M.D. Powder Divalproex Sodium 3 by mouth at 90tabs [facility], 07/21/2017 250mg bedtime. M.D. Tablets DR Madeline Schulte 1 - 2 PO qd prn [facility], 05/24/2013 250mg gas or abdominal M.D. Capsules pain Losartan Take One Tablet 90tabs I10 [facility], 01/05/2013 Potassium/Hydrochloro By Mouth Every M.D. thiazide Day 50-12.5mg Tablets Tylenol 8 Hour prn 1tabs [facility], 06/14/2010 650mg M.D. Tablets ER Duloxetine HCL take one capsule 30caps [facility], 30mg by mouth every M.D. Caps DR Potter day Medications Administered in Office Medication SIG Qnty Indications Ordering Provider Date Triamcinolone (Kenalog) Daisy Gavin MD 02/04/2017 Injection Triamcinolone (Kenalog) Daisy Gavin MD 02/04/2017 Injection Immunizations CPT Code Status Date Vaccine Lot # [id number] Given 04/24/2018 Fluzone High Dose 93400 Given 04/19/2017 Influenza Virus Vaccine, Quadrivalent, Split, Preservative Free 76182 Given 10/24/2014 Pneumococcal Conjugate Vaccine 13 Valent For [id number] Intramuscular Use 88022 Given 09/23/2011 Tdap - Tetanus/Diptheria/Acellular Pertussis [id number] 35467 Given 03/20/2011 Influenza Virus 3Yrs & Over 78526 Given 03/26/2010 Influenza Virus 3Yrs & Over 31966 Given 04/14/2009 Influenza Virus 3Yrs & Over 32365 Given 04/05/2008 Influenza Virus 3Yrs & Over 82003 Given 04/05/2008 Influenza Virus 3Yrs & Over 08623 Given 02/18/2007 Pneumonia Vaccine 08099 Given 02/18/2007 Pneumonia Vaccine Vital Signs Date Vital Result Comment 02/09/2019 1:26pm Height 61 inches 5'1" Weight 276.00 lb Heart Rate 92 /min BP Systolic 110 mmHg BP Diastolic 70 mmHg O2 % BldC Oximetry 90 % BMI (Body Mass Index) 52.1 kg/m2 09/07/2018 10:58am Height 61 inches 5'1" Weight 274.00 lb Heart Rate 76 /min BP Systolic Sitting 124 mmHg BP Diastolic Sitting 83 mmHg O2 % BldC Oximetry 93 % BMI (Body Mass Index) 51.8 kg/m2 Results Test Date Facility Test Result H/L Range Note Lipid Profile 09/15/2018 [facility] Triglycerides 153 mg/dL 1 (Trig/Chol/HDL) [address] [place] [address] [phone] Cholesterol 198 mg/dL 2 HDL Cholesterol 48.9 mg/dL 3 LDL Cholesterol 119 mg/dL 4 Comp Metabolic 09/15/2018 [facility] Sodium 140 mmol/L Normal 135-[address] [place] [address] [phone] Potassium 4.1 mmol/L Normal 3.5-5.0 Chloride 104 mmol/L Normal 101-111 Co2 Carbon Dioxide 31 mmol/L Normal 22-32 Anion Gap 5 mmol/L Normal 2-11 Glucose 101 mg/dL High 70-100 Blood Urea Nitrogen 12 mg/dL Normal 6-24 Creatinine 0.74 mg/dL Normal 0.51-0.95 BUN/Creatinine Ratio 16.2 Normal 8-20 Calcium 8.9 mg/dL Normal 8.6-10.3 Total Protein 6.6 g/dL Normal 6.4-8.9 Albumin 4.0 g/dL Normal 3.2-5.2 Globulin 2.6 g/dL Normal 2-4 Albumin/Globulin Ratio 1.5 Normal 1-3 Total Bilirubin 0.50 mg/dL Normal 0.2-1.0 Alkaline Phosphatase 73 U/L Normal 34-104 Alt 25 U/L Normal 7-52 Ast 31 U/L Normal 13-39 Egfr Non- 76.3 >60 Egfr 92.3 >60 5 Laboratory test 09/15/2018 [facility] Hemoglobin A1c 5.4 % Normal 4.0-5.6 [address] (Glyco HGB) [place] [address] [phone] Valproic Acid (Depakene) 58.0 g/mL Normal 50-100 Laboratory test 09/15/2018 [facility] Surgical SEE RESULT [address] [place] [address] [phone] Desirable: <150 Borderline High: 150-199 High: 200-499 Very High: >500 2 Desirable: <200 Borderline High: 200-239 High: >239 3 Low: <40 Desirable: 40-60 High: >60 4 Desirable: <100 Near Optimal: 100-129 Borderline High: 130-159 High: 160-189 Very High: >189 5 Because ethnic data is not always readily available, this report includes an eGFR for both -Americans and non- Americans. The National Kidney Disease Education Program (NKDEP) does not endorse the use of the MDRD equation for patients that are not between the ages of 18 and 70, are , have extremes of body size, muscle mass, or nutritional status, or are non- or non-. According to the National Kidney Foundation, irrespective of diagnosis, the stage of the disease is based on the level of kidney function: Stage Description GFR(mL/min/1.73 m(2)) 1 Kidney damage with normal or decreased GFR 90 2 Kidney damage with mild decrease in GFR 60-89 3 Moderate decrease in GFR 30-59 4 Severe decrease in GFR 15-29 5 Kidney failure <15 (or dialysis) 6 Therapeutic target for the treatment of diabetes mellitus patients is <7% HBA1C, and in selective patients <6.0%. Please refer to [place] [employer] Association diabetic care guidelines for further information. 7 SEE RESULT BELOW Name: ROCHELLE SULLIVAN : [address]: Luis Enrique Mock MD Acct: [id number] Unit: [id number] AGE: 78 Location: ENDO Re09/15/18 SEX: F Status: DEP REF SPEC: [id number] RODOLFO: 09/15/18-[address]: Luis Enrique Mock MD REQ: [id number] RECD: 09/15/18-1310 STATUS: AGNES MCMAHON DR: Soraya Hitchcock MD _ ORDERED: LEVEL 4/4 FINAL DIAGNOSIS 1. Colon, mid right, biopsy: -- Tubular adenoma. -- No high grade dysplasia or malignancy. 2. Colon, distal right, biopsy: -- Tubular adenoma. -- No high grade dysplasia or malignancy. 3. Colon, proximal transverse, biopsy: -- Tubular adenoma. -- No high grade dysplasia or malignancy. 4. Colon, mid transverse, biopsy: -- Tubular adenoma. -- No high grade dysplasia or malignancy. CLINICAL HISTORY Usual bowel habits - every day - no blood POST-OPERATIVE DIAGNOSIS Colonoscopy: to cecum; easy; conclusions: diverticulosis left; polyps right CONTINUED ON NEXT PAGE DEPARTMENT OF PATHOLOGY, [address] [place] [address] Patrick Fine M.D. Director LIANA # [id number] RUN DATE: 09/16/18 [facility] LAB LIVE PAGE 2 Patient: ROCHELLE SULLIVAN [id number] (Continued) GROSS DESCRIPTION (Continued) GROSS DESCRIPTION 1. The specimen is received in formalin labeled, Mid Right Colon Polyp, and consists of two monsalve irregular to polypoid soft tissue fragments measuring 0.5 x 0.2 x 0.1 cm and 0.7 by up to 0.3 x 0.2 cm which are submitted entirely in one cassette. 2. The specimen is received in formalin labeled, Distal Right Colon Polyp, and consists of a 0.3 x 0.2 x 0.1 cm monsalve-pink irregular soft tissue fragment which is submitted entirely in one cassette. 3. The specimen is received in formalin labeled, Proximal Transverse Colon Polyp, and consists of two monsalve-white to pink irregular soft tissue fragments averaging 0.3 x 0.2 x 0.1 cm which are submitted entirely in one cassette. 4. The specimen is received in formalin labeled, Mid Transverse Colon Polyp , and consists of a 0.2 x 0.2 x 0.1 cm monsalve-pink polypoid soft tissue fragment which is submitted entirely in one cassette. Signed by and Reported on: Sharifa Cisneros MD 09/16/18 0950 END OF REPORT DEPARTMENT OF PATHOLOGY, [address] [place] [address] Patrick Fine M.D. Director [facility] # [id number] Procedures Date Code Description Status 09/15/2018 00701385 Colonoscopy Completed 09/15/2018 48062 Colonoscopy Flexible Remove Tumor/Polyp/Lesion Snare Completed Technique 01/03/2017 [id number] Mammogram Completed 11/02/2014 [id number] Mammogram Completed 02/09/2013 [id number] Colonoscopy Completed 11/11/2012 [id number] Mammogram Completed 06/18/2011 [id number] Bone Mineral Density Test Completed 06/18/2011 [id number] Mammogram Completed 06/14/2010 [id number] Mammogram Completed 05/16/2009 [id number] Bone Mineral Density Test Completed 11/07/2008 [id number] Colonoscopy Completed 03/24/2008 [id number] Mammogram Completed 09/14/2007 [id number] Mammogram Completed 03/03/2007 [id number] Mammogram Completed 09/01/2006 [id number] Mammogram Completed 10/23/2005 [id number] Colonoscopy Completed 07/23/2005 [id number] Mammogram Completed Medical Devices Description No Information Available Encounters Type Date Location Provider Dx Diagnosis Office Visit 09/07/2018 DoNotUse Resource Conservation Manager Soraya Hitchcock, I10 Essential ( primary) 10:40a Internal M.DMiguel A hypertension Medicine-[facility] F31.89 Other bipolar disorder R73.01 Impaired fasting glucose Assessments Date Code Description Provider 02/09/2019 I10 Essential (primary) hypertension Soraya Hitchcock M.D. 02/09/2019 M79.673 Pain in unspecified foot Soraya Hitchcock M.D. 02/09/2019 F31.89 Other bipolar disorder Soraya Hitchcock M.D. 02/09/2019 R32 Unspecified urinary incontinence Soraya Hitchcock M.D. 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 09/07/2018 F31.89 Other bipolar disorder Soraya Hitchcock M.D. 09/07/2018 R73.01 Impaired fasting glucose Soraya Hitchcock M.D. Plan of Treatment Future Appointment(s):05/21/2019 3:00 pm - [facility] Soraya Hitchcock M.D.I10 Essential ( primary) hypertensionComments:Your blood pressure is fine. Continue the same medicationFollow up:3 ucmjccG35.673 Pain in unspecified footFollow up:STARR DelarosaF31.89 Other bipolar disorderComments:You need to get back to [facility] - need to sort out living situation [id number] Unspecified urinary incontinenceNew Medication:Myrbetriq 25 mg - 1 by mouth every dayComments:Let me know what you think of the Myrbetriq. Functional Status Description No Information Available Mental Status Description No Information Available Referrals Description No Information Available
[2019-02-27 11:52] VITALS: BP 133/82
--- NOTE | 2019-02-27 12:25 | UC ---
Back Pain HPI - HPI Summary HPI Summary: started 1 week ago with L lower back pain. no known injury or overuse. denies tingling or numbness, no weakness legs. states pain is constant and not better or worse with movement also started cymbalta and myrbetrik (for incontinence) last week and is feeling intermittently nauseous for 2-3 days - no vomiting. she feels the nausea is because of the pain - History of Current Complaint Chief Complaint: UCBackPain Stated Complaint: BACK ACHE Time Seen by Provider: 02/27/19 11:56 Hx Obtained From: Patient Hx Last Menstrual Period: post menopausal Onset/Duration: Gradual Onset Timing: Constant Severity Initially: Mild Severity Currently: Severe Pain Intensity: 10 Back Pain: Is Discrete @ - lower L back Character: Throbbing, Stiffness Aggravating Factor(s): Movement, Walking Alleviating Factor(s): Rest Associated Signs And Symptoms: Negative: Abdominal Pain, Flank Pain, Bladder Incontinence, Bowel Incontinence - states bladder incontinence has improved on Myrbetriq - Allergies/Home Medications Allergies/Adverse Reactions: Allergies Allergy/AdvReac Type Severity Reaction Status Date / Time lisinopril Allergy INTOLERANCE Verified 02/27/19 11:38 ENVIRONMENTAL/SEASONAL Allergy Congestion Uncoded 02/27/19 11:38 HAYFEVER STATINS Allergy Muscle Ache Uncoded 02/27/19 11:38 Home Medications: Home Medications Mirabegron [Myrbetriq] 25 mg PO DAILY 02/27/19 [History Confirmed 02/27/19] PMH/Surg Hx/FS Hx/Imm Hx Previously Healthy: Yes Endocrine History: Dyslipidemia Cardiovascular History: Hypertension GI/ History: Other - denies hx UTI or kidney stones, hx of incontinence Psychological History: Depression - Surgical History Surgical History: Yes Surgery Procedure, Year, and Place: APPENDECTOMY. CATARCATS SURGERY BOTH. TONSILECTOMY. JOINT SURGERIES-HIPS AND KNEES - Family History Known Family History: Positive: Hypertension - Social History Occupation: Retired Lives: With Family Alcohol Use: None Substance Use Type: None Smoking Status (MU): Never Smoked Tobacco - Immunization History Most Recent Influenza Vaccination: 2017 Most Recent Tetanus Shot: 2011 Most Recent Pneumonia Vaccination: 2014 Review of Systems All Other Systems Reviewed And Are Negative: Yes Constitutional: Positive: Negative. Negative: Fever, Chills Skin: Positive: Negative. Negative: Rash Respiratory: Positive: Negative Cardiovascular: Positive: Negative Gastrointestinal: Positive: Nausea. Negative: Abdominal Pain, Vomiting Musculoskeletal: Positive: Other: - low back pain Neurological: Positive: Negative. Negative: Headache Psychological: Positive: Negative Is Patient Immunocompromised?: No Physical Exam Triage Information Reviewed: Yes Appearance: Well-Appearing, No Pain Distress, Obese Vital Signs: Initial Vital Signs Temp 96.6 F 02/27/19 11:42 Pulse 91 02/27/19 11:42 Resp 20 02/27/19 11:42 BP 133/82 02/27/19 11:42 Pulse Ox 96 02/27/19 11:42 Vital Signs Reviewed: Yes Neck exam: Normal Respiratory Exam: Normal Respiratory: Positive: Lungs clear Cardiovascular Exam: Normal Cardiovascular: Positive: RRR Musculoskeletal: Positive: Other: - patient states she can move the same as she always can - walks with cane, back pain worsens with standing and ambulating Neurological Exam: Normal Neurological: Positive: Alert Skin Exam: Normal Skin: Negative: Rashes Back Pain Course/Dx - Course Course Of Treatment: discussed with patient that her symptoms are consistent with kidney stone. she refuses EMS transport to ER but is willing to go by car (friend her to drive) - Differential Dx/Diagnosis Differential Diagnosis/HQI/PQRI: Cauda Equina Syndrome, Renal Colic, Strain, Sprain Provider Diagnosis: Hematuria, Back pain Discharge ED - Sign-Out/Discharge Documenting (check all that apply): Patient Departure All imaging exams completed and their final reports reviewed: No Studies - Discharge Plan Condition: Stable Disposition: HOME Referrals: Soraya Hitchcock MD [Primary Care Provider] - Additional Instructions: There is a possibility you are experiencing a kidney stone Please go directly to [facility] ER for further evaluation - Billing Disposition and Condition Condition: STABLE Disposition: Home - Attestation Statements Provider Attestation: Per institutional requirements, I have reviewed the chart, however, I was not consulted specifically or made aware of this patient by the midlevel provider. I did not personally evaluate, interact with , or disposition this patient.
== END 2019-02-27 12:45 | disposition home or self-care (01) ==
LOC: UCEAST 11:31
DX: R31.9 Hematuria, unspecified (principal); M54.5 Low back pain; R11.0 Nausea; I10 Essential (primary) hypertension; R32 Unspecified urinary incontinence; Z88.8 Allergy status to other drugs, medicaments and biological substances
CPT/HCPCS: 81003; 99212; G0463

== ENCOUNTER 2019-02-27 13:38 | Emergency (ER) | payer MEDICARE ==
[2019-02-27 15:38] LABS: ABS Basophils 0.1 10^3/ul (0-0.2); ABS Eosinophils 0.1 10^3/ul (0-0.6); ABS Lymphocytes 2.1 10^3/ul (1.0-4.8); ABS Monocytes 0.8 10^3/ul (0-0.8); ABS Neutrophils 6.4 10^3/ul (1.5-7.7); Eosinophil % 0.8 %; Hematocrit 43 % (35-47); Hemoglobin 14.4 g/dL (12.0-16.0); Lymphocyte % 21.7 %; Mean Corpuscular HGB Conc 33 g/dL (31-36); Mean Corpuscular Hemoglobin 32 pg (27-31); Mean Corpuscular Volume 94 fL (80-97); Mean Platelet Volume 9.6 fL (7.4-10.4); Nucleated Red Blood Cells % 0.1; Platelet Count 168 10^3/uL (150-450); Red Blood Count 4.56 10^6 /uL (3.70-4.87); Red Cell Distribution Width 15 % (10-15); White Blood Count 9.5 10^3/uL (3.5-10.8)
[2019-02-27 15:57] LABS: Albumin 4.1 g/dL (3.2-5.2); Albumin/Globulin Ratio 1.5 (1-3); BUN/Creatinine Ratio 25.7 (8-20); C Reactive Protein 7.11 mg/L (<8.01); Calcium 9.3 mg/dL (8.6-10.3); EGFR African American 64.3 (>60); EGFR Non-African American 53.1 (>60); Globulin 2.7 g/dL (2-4); Magnesium 1.9 mg/dL (1.9-2.7); Total Bilirubin 0.6 mg/dL (0.2-1.0); Total Protein 6.8 g/dL (6.4-8.9)
[2019-02-27] MEDS ORDERED: traMADol TAB* 50 MG PO ONE (17:26)
[2019-02-27 17:33] VITALS: BP 134/82
--- NOTE | 2019-02-28 06:53 | ED ---
Back Pain - HPI Summary HPI Summary: This patient is a 79-year-old female presenting to the ED with bilateral flank pain times approximately one week. She was seen at urgent care and was sent here for further evaluation of a possible kidney stone. Patient has been denying any fevers, sweats, chills, nausea, vomiting. Patient has been incontinent and recently started a new medication last week through her PCP to help control her incontinence. She is unsure of the name. She continues to have incontinence but denies any gross hematuria. Denies any other urinary symptoms. Sxs are non-radiating, not worse with positioning. - History of Current Complaint Chief Complaint: EDFlankPain Stated Complaint: POSSIBLE KIDNEY STONE PER CC Time Seen by Provider: 02/27/19 15:11 Hx Obtained From: Patient Hx Last Menstrual Period: post menopausal Onset/Duration: Gradual Onset Onset/Duration: Started Days Ago Timing: Constant Back Pain Location: Is Discrete @ - bilateral lower back pain Severity Initially: Moderate Severity Currently: Moderate Pain Intensity: 4 Pain Scale Used: 0-10 Numeric Character: Aching Associated Signs And Symptoms: Positive: Bladder Incontinence. Negative: Swelling, Redness, Bowel Incontinence - Allergies/Home Medications Allergies/Adverse Reactions: Allergies Allergy/AdvReac Type Severity Reaction Status Date / Time lisinopril Allergy INTOLERANCE Verified 02/27/19 11:38 ENVIRONMENTAL/SEASONAL Allergy Congestion Uncoded 02/27/19 11:38 HAYFEVER STATINS Allergy Muscle Ache Uncoded 02/27/19 11:38 PMH/Surg Hx/FS Hx/Imm Hx Previously Healthy: Yes Endocrine/Hematology History: Denies: Hx Diabetes, Hx Thyroid Disease Cardiovascular History: Reports: Hx Hypertension Denies: Hx Pacemaker/ICD Respiratory History: Reports: Other Respiratory Problems/Disorders - SINUSITIS Denies: Hx Asthma, Hx Chronic Obstructive Pulmonary Disease (COPD), Hx Pneumonia, Hx Sleep Apnea GI History: Denies: Hx Gastroesophageal Reflux Disease, Hx Ulcer History: Denies: Hx Dialysis, Hx Renal Disease Musculoskeletal History: Reports: Hx Arthritis - OSTEOARTHRITIS Sensory History: Reports: Hx Cataracts - HX OF Denies: Hx Contacts or Glasses - implants, Hx Hearing Aid Opthamlomology History: Reports: Hx Cataracts - HX OF Denies: Hx Contacts or Glasses - implants Neurological History: Reports: Other Neuro Impairments/Disorders Denies: Hx Dementia, Hx Headaches, Hx Migraine, Hx Nerve Disease, Hx Seizures , Hx Spinal Cord Injury, Hx Transient Ischemic Attacks (TIA) Psychiatric History: Reports: Hx Anxiety - CONTROL WITH MEDS, Hx Depression - CONTROL WITH MEDS (BIPOLAR) Denies: Hx Panic Disorder - Cancer History Hx Chemotherapy: No Hx Radiation Therapy: No - Surgical History Surgery Procedure, Year, and Place: APPENDECTOMY. CATARCATS SURGERY BOTH. TONSILECTOMY. JOINT SURGERIES-HIPS AND KNEES Hx Anesthesia Reactions: No Infectious Disease History: No Infectious Disease History: Reports: Hx Shingles Denies: Hx Clostridium Difficile, Hx Hepatitis, Hx Human Immunodeficiency Virus (HIV), Hx of Known/Suspected MRSA, Hx Tuberculosis, Traveled Outside the [place] in Last 30 Days - Family History Known Family History: Positive: Hypertension - Social History Occupation: Unemployed Lives: Alone Alcohol Use: None Hx Substance Use: No Substance Use Type: Reports: None Smoking Status (MU): Never Smoked Tobacco Review of Systems Negative: Fever, Fatigue, Skin Diaphoresis Negative: Shortness Of Breath, Cough Negative: Abdominal Pain, Vomiting, Diarrhea, Nausea Positive: flank pain - bilateral, incontinence Positive: Arthralgia Skin: Negative Neurological: Negative All Other Systems Reviewed And Are Negative: Yes Physical Exam Triage Information Reviewed: Yes Vital Signs On Initial Exam: Initial Vitals Temp Pulse Resp BP Pulse Ox 97.6 F 96 16 125/92 94 02/27/19 13:47 02/27/19 13:47 02/27/19 13:47 02/27/19 13:47 02/27/19 13:47 Vital Signs Reviewed: Yes Appearance: Positive: Well-Appearing, Well-Nourished Skin: Positive: Warm, Skin Color Reflects Adequate Perfusion Head/Face: Positive: Normal Head/Face Inspection Eyes: Positive: EOMI, RONNY, Conjunctiva Clear Neck: Positive: Supple, No Lymphadenopathy Respiratory/Lung Sounds: Positive: Breath Sounds Present Cardiovascular: Positive: Pulses are Symmetrical in both Upper and Lower Extremities Musculoskeletal: Positive: Pain @ - bilateral lower back pain Neurological: Positive: Sensory/Motor Intact, Alert, Oriented to Person Place, Time, Speech Normal Psychiatric: Positive: Affect/Mood Appropriate Diagnostics - Vital Signs Vital Signs Temp Pulse Resp BP Pulse Ox 02/27/19 17:32 98.4 F 90 16 134/82 91 02/27/19 13:47 97.6 F 96 16 125/92 94 - Laboratory Lab Results: Lab Results 02/27/19 02/27/19 02/27/19 Range/Units 15:30 15:30 15:30 WBC 9.5 (3.5-10.8) 10^3/uL RBC 4.56 (3.70-4.87) 10^6 /uL Hgb 14.4 (12.0-16.0) g/dL Hct 43 (35-47) % MCV 94 (80-97) fL MCH 32 H (27-31) pg MCHC 33 (31-36) g/dL RDW 15 (10-15) % Plt Count 168 (150-450) 10^3/uL MPV 9.6 (7.4-10.4) fL Neut % (Auto) 67.8 % Lymph % (Auto) 21.7 % [place] % (Auto) 8.9 % Eos % (Auto) 0.8 % Baso % (Auto) 0.8 % Absolute Neuts (auto) 6.4 (1.5-7.7) 10^3/ul Absolute Lymphs (auto) 2.1 (1.0-4.8) 10^3/ul Absolute Monos (auto) 0.8 (0-0.8) 10^3/ul Absolute Eos (auto) 0.1 (0-0.6) 10^3/ul Absolute Basos (auto) 0.1 (0-0.2) 10^3/ul Absolute Nucleated RBC 0.0 10^3/ul Nucleated RBC % 0.1 Sodium 144 (135-145) mmol/L Potassium 4.0 (3.5-5.0) mmol/L Chloride 102 (101-111) mmol/L Carbon Dioxide 36 H (22-32) mmol/L Anion Gap 6 (2-11) mmol/L BUN 26 H (6-24) mg/dL Creatinine 1.01 H (0.51-0.95) mg/dL Est GFR ( Amer) 64.3 (>60) Est GFR (Non-Af Amer) 53.1 (>60) BUN/Creatinine Ratio 25.7 H (8-20) Glucose 107 H (70-100) mg/dL Lactic Acid 1.4 (0.5-2.0) mmol/L Calcium 9.3 (8.6-10.3) mg/dL Magnesium 1.9 (1.9-2.7) mg/dL Total Bilirubin 0.60 (0.2-1.0) mg/dL AST 26 (13-39) U/L ALT 29 (7-52) U/L Alkaline Phosphatase 66 (34-104) U/L C-Reactive Protein 7.11 (<8.01) mg/L Total Protein 6.8 (6.4-8.9) g/dL Albumin 4.1 (3.2-5.2) g/dL Globulin 2.7 (2-4) g/dL Albumin/Globulin Ratio 1.5 (1-3) Lipase 20 (11.0-82.0) U/L Result Diagrams: 02/27/19 15:30 02/27/19 15:30 Lab Statement: Any lab studies that have been ordered have been reviewed, and results considered in the medical decision making process. Back Pain Course/Dx - Course Course Of Treatment: During this was treatment, the patient is evaluated for bilateral flank pain. On physical examination, patient is obese, resting comfortably, endorsing a 2/10 pain. Lungs CTA, RRR. No abdominal tenderness throughout. Bilateral CVA tenderness on deep palpation. She denies any back pain otherwise. Labs obtained which are unremarkable. CT abdomen and pelvis without contrast shows negative for urolithiasis or hydronephrosis. Patient continues to be able to move, however is endorsing "stiffness." Discussed findings with the patient. Likely this is low back pain/strain, however could be a medication reaction. She will call her PCP on Friday for a follow up. UA obtained at [facility] which showed RBC's without evidence of infection. - Diagnoses Differential Diagnosis/HQI/PQRI: Positive: Strain, Sprain, Other - kidney stone , medication reaction, incontinence Provider Diagnoses: Back pain Discharge ED - Sign-Out/Discharge Documenting (check all that apply): Patient Departure Patient Received Moderate/Deep Sedation with Procedure: No - Discharge Plan Condition: Stable Disposition: HOME Prescriptions: traMADol TAB* [Ultram*] 50 mg PO Q8H PRN #12 tab MDD 3 PRN Reason: Pain Patient Education Materials: Acute Low Back Pain (ED) Referrals: Soraya Hitchcock MD [Primary Care Provider] - Additional Instructions: There is no evidence of a kidney stone on examination You were given tramadol as needed for pain, take this up to 3 times daily for discomfort You may also take Tylenol up to 3 times daily in addition to the Tramadol - Billing Disposition and Condition Condition: STABLE Disposition: Home - Attestation Statements Provider Attestation: I was available for consult. This patient was seen by the DUNCAN. The patient was not presented to, seen by, or examined by me. Zurdo Ybarra MD
== END 2019-02-27 17:32 | disposition home or self-care (01) ==
LOC: ED 13:38
DX: M54.9 Dorsalgia, unspecified (principal); I10 Essential (primary) hypertension; F41.9 Anxiety disorder, unspecified; F32.9 Major depressive disorder, single episode, unspecified; K57.30 Diverticulosis of large intestine without perforation or abscess without bleeding; K42.9 Umbilical hernia without obstruction or gangrene; Z79.01 Long term (current) use of anticoagulants; Z79.899 Other long term (current) drug therapy; Z88.8 Allergy status to other drugs, medicaments and biological substances
CPT/HCPCS: 36415; 74176; 80053; 83605; 83690; 83735; 85025; 86140; 99282; A9270-GY

== ENCOUNTER 2020-02-11 11:35 | Inpatient (IN) ==
[2020-02-11 12:36] LABS: ABS Basophils 0.1 10^3/ul (0-0.2); ABS Eosinophils 0.3 10^3/ul (0-0.6); ABS Lymphocytes 1.4 10^3/ul (1.0-4.8); ABS Monocytes 0.9 10^3/ul (0-0.8); ABS Neutrophils 6.6 10^3/ul (1.5-7.7); Eosinophil % 2.9 %; Hematocrit 37 % (35-47); Hemoglobin 12.1 g/dL (12.0-16.0); Lymphocyte % 15.6 %; Mean Corpuscular HGB Conc 33 g/dL (31-36); Mean Corpuscular Hemoglobin 31 pg (27-31); Mean Corpuscular Volume 93 fL (80-97); Mean Platelet Volume 9.5 fL (7.4-10.4); Platelet Count 203 10^3/uL (150-450); Red Blood Count 3.94 10^6 /uL (3.70-4.87); Red Cell Distribution Width 15 % (10-15); White Blood Count 9.3 10^3/uL (3.5-10.8)
[2020-02-11 12:49] LABS: Ammonia 48 mcmol/L (16-53)
[2020-02-11 12:51] LABS: ALT 17 U/L (7-52); AST 19 U/L (13-39); Albumin 3.6 g/dL (3.2-5.2); Albumin/Globulin Ratio 1.3 (1-3); Alkaline Phosphatase 70 U/L (34-104); Anion Gap 6 mmol/L (2-11); BUN/Creatinine Ratio 18.6 (8-20); Blood Urea Nitrogen 19 mg/dL (6-24); CO2 Carbon Dioxide 35 mmol/L (22-32); Calcium 9.2 mg/dL (8.6-10.3); Chloride 99 mmol/L (101-111); EGFR African American 63.6 (>60); EGFR Non-African American 52.5 (>60); Globulin 2.8 g/dL (2-4); Glucose 128 mg/dL (70-100); Magnesium 1.9 mg/dL (1.9-2.7); Potassium 4.1 mmol/L (3.5-5.0); Sodium 140 mmol/L (135-145); Total Protein 6.4 g/dL (6.4-8.9)
[2020-02-11 12:52] LABS: INR 1.42 (0.82-1.09)
[2020-02-11 12:53] LABS: Troponin I 0.01 ng/mL (<0.03)
[2020-02-11 12:55] LABS: BNP 20 pg/mL (<=100)
[2020-02-11 13:16] LABS: Alcohol, S < 10 mg/dL (<10)
[2020-02-11 14:33] LABS: Urine Appearance Clear; Urine Bilirubin Negative (Negative); Urine Blood Negative (Negative); Urine Color Yellow; Urine Glucose Negative (Negative); Urine Ketones Negative (Negative); Urine Nitrite Negative (Negative); Urine Protein Negative (Negative); Urine Specific Gravity 1.025 (1.010-1.030); Urine Urobilinogen Negative (Negative)
[2020-02-11 16:46] LABS: C Reactive Protein 23.15 mg/L (<8.01)
[2020-02-11] MEDS ORDERED: Al Hydrox/Mg Hydrox/Simet LIQ 30 ML UDC PO PRN (16:51)
[2020-02-11] MEDS ORDERED: Furosemide 40 mg/4 ml IV VIAL IV SCH (17:00)
[2020-02-11] MEDS ORDERED: Albuterol HFA INHALER 8 gm MDI INH PRN (17:19)
[2020-02-11 17:52] LABS: TSH Ultra Thyroid Stim Horm 5.34 mcIU/mL (0.34-5.60)
[2020-02-11] MEDS: Nystatin TOP POWDER 15 GM BTL TOPICAL SCH (22:22)
[2020-02-12] MEDS: Mometasone/Formoter 100/5 MDI INH SCH ×3 (04:37→19:21)
[2020-02-12 05:35] LABS: ABS Basophils 0.1 10^3/ul (0-0.2); ABS Eosinophils 0.3 10^3/ul (0-0.6); ABS Lymphocytes 1.7 10^3/ul (1.0-4.8); ABS Monocytes 1.1 10^3/ul (0-0.8); ABS Neutrophils 5.3 10^3/ul (1.5-7.7); Eosinophil % 3.9 %; Hematocrit 34 % (35-47); Hemoglobin 11.5 g/dL (12.0-16.0); Mean Corpuscular HGB Conc 34 g/dL (31-36); Mean Corpuscular Hemoglobin 31 pg (27-31); Mean Corpuscular Volume 93 fL (80-97); Mean Platelet Volume 9.6 fL (7.4-10.4); Nucleated Red Blood Cells % 0.1; Platelet Count 186 10^3/uL (150-450); Red Cell Distribution Width 15 % (10-15); White Blood Count 8.5 10^3/uL (3.5-10.8)
[2020-02-12 05:45] LABS: BUN/Creatinine Ratio 18.4 (8-20); Calcium 8.8 mg/dL (8.6-10.3); EGFR African American 76.4 (>60); EGFR Non-African American 63.1 (>60); Potassium 3.9 mmol/L (3.5-5.0)
[2020-02-12] MEDS ORDERED: Potassium Chloride LIQUID 20 MEQ/15 ML LIQUID PO ONE (07:33)
[2020-02-12] MEDS: DULoxetine DR 30 mg CAP PO SCH (09:04)
[2020-02-12] MEDS: Nystatin TOP POWDER 15 GM BTL TOPICAL SCH ×2 (09:05→20:30)
[2020-02-12] MEDS: Mirabegron 25 mg ER TAB (NF) PO SCH (09:05)
[2020-02-12] MEDS: Furosemide 40 mg/4 ml IV VIAL IV SCH (09:06)
[2020-02-13] MEDS: DULoxetine DR 30 mg CAP PO SCH (07:45)
[2020-02-13] MEDS: Furosemide 40 mg/4 ml IV VIAL IV SCH (07:45)
[2020-02-13] MEDS: Mometasone/Formoter 100/5 MDI INH SCH ×2 (07:55→19:41)
[2020-02-13] MEDS: Mirabegron 25 mg ER TAB (NF) PO SCH (08:15)
[2020-02-13 09:58] LABS: BUN/Creatinine Ratio 18.1 (8-20); Calcium 9.2 mg/dL (8.6-10.3); EGFR African American 69.9 (>60); EGFR Non-African American 57.7 (>60); Magnesium 1.9 mg/dL (1.9-2.7); Potassium 3.8 mmol/L (3.5-5.0)
[2020-02-13] MEDS ORDERED: Perflutren Lipid Microsphere 3 ML VIAL ONE (11:00)
[2020-02-13] MEDS ORDERED: Potassium Chlor 20 meq TAB.ER PO ONE (11:02)
[2020-02-13] MEDS: Nystatin TOP POWDER 15 GM BTL TOPICAL SCH ×2 (12:06→20:42)
[2020-02-14 06:26] LABS: ABS Eosinophils 0.3 10^3/ul (0-0.6); ABS Lymphocytes 1.8 10^3/ul (1.0-4.8); ABS Monocytes 0.9 10^3/ul (0-0.8); Eosinophil % 3.8 %; Hematocrit 36 % (35-47); Hemoglobin 11.7 g/dL (12.0-16.0); Lymphocyte % 22.2 %; Mean Corpuscular HGB Conc 33 g/dL (31-36); Mean Corpuscular Hemoglobin 31 pg (27-31); Mean Corpuscular Volume 93 fL (80-97); Mean Platelet Volume 9.1 fL (7.4-10.4); Platelet Count 190 10^3/uL (150-450); Red Blood Count 3.84 10^6 /uL (3.70-4.87); Red Cell Distribution Width 15 % (10-15)
[2020-02-14 06:42] LABS: Calcium 8.9 mg/dL (8.6-10.3); EGFR African American 74.4 (>60); EGFR Non-African American 61.5 (>60); Potassium 4.2 mmol/L (3.5-5.0)
[2020-02-14] MEDS: Mirabegron 25 mg ER TAB (NF) PO SCH (08:21)
[2020-02-14] MEDS: Furosemide 40 mg/4 ml IV VIAL IV SCH (08:24)
[2020-02-14] MEDS: DULoxetine DR 30 mg CAP PO SCH (08:24)
[2020-02-14] MEDS: Mometasone/Formoter 100/5 MDI INH SCH ×2 (09:25→19:29)
[2020-02-14] MEDS: Nystatin TOP POWDER 15 GM BTL TOPICAL SCH ×2 (09:54→21:04)
[2020-02-15 07:22] LABS: BUN/Creatinine Ratio 21.5 (8-20); Calcium 8.9 mg/dL (8.6-10.3); EGFR African American 85.4 (>60); EGFR Non-African American 70.6 (>60)
[2020-02-15] MEDS: Mometasone/Formoter 100/5 MDI INH SCH ×2 (09:06→20:53)
[2020-02-15] MEDS ORDERED: Potassium Chloride LIQUID 20 MEQ/15 ML LIQUID PO ONE (09:21)
[2020-02-15] MEDS: Furosemide 40 mg/4 ml IV VIAL IV SCH ×2 (09:42→13:43)
[2020-02-15] MEDS: DULoxetine DR 30 mg CAP PO SCH (09:53)
[2020-02-15] MEDS: Nystatin TOP POWDER 15 GM BTL TOPICAL SCH ×2 (09:54→21:22)
[2020-02-15] MEDS: Mirabegron 25 mg ER TAB (NF) PO SCH (10:54)
[2020-02-16 07:50] LABS: BUN/Creatinine Ratio 20.7 (8-20); Calcium 9.2 mg/dL (8.6-10.3); EGFR African American 76.4 (>60); EGFR Non-African American 63.1 (>60); Potassium 3.7 mmol/L (3.5-5.0)
[2020-02-16] MEDS: Mometasone/Formoter 100/5 MDI INH SCH ×2 (08:01→20:27)
[2020-02-16] MEDS: Mirabegron 25 mg ER TAB (NF) PO SCH (10:07)
[2020-02-16] MEDS: Furosemide 40 mg/4 ml IV VIAL IV SCH (10:09)
[2020-02-16] MEDS: Nystatin TOP POWDER 15 GM BTL TOPICAL SCH ×2 (10:09→20:17)
[2020-02-16] MEDS: DULoxetine DR 30 mg CAP PO SCH (10:09)
[2020-02-16] MEDS: KCL 20 MEQ/100 ML IVPREMIX 20 MEQ/100 ML BAG IV SCH (22:56)
[2020-02-17] MEDS: KCL 20 MEQ/100 ML IVPREMIX 20 MEQ/100 ML BAG IV SCH (01:25)
[2020-02-17 06:16] LABS: BUN/Creatinine Ratio 23.6 (8-20); Calcium 9.2 mg/dL (8.6-10.3); EGFR African American 74.2 (>60); EGFR Non-African American 61.3 (>60); Magnesium 2.1 mg/dL (1.9-2.7)
[2020-02-17] MEDS: Mometasone/Formoter 100/5 MDI INH SCH (07:16)
[2020-02-17] MEDS: DULoxetine DR 30 mg CAP PO SCH (10:32)
[2020-02-17] MEDS: Nystatin TOP POWDER 15 GM BTL TOPICAL SCH (10:32)
[2020-02-17 12:12] VITALS: BP 132/76
== END 2020-02-17 13:50 | DRG 291 ==
LOC: ED 11:35 → MED 16:51
PROVIDERS: ADMIT Internal Medicine; ATTEND Internal Medicine

== ENCOUNTER 2021-09-10 14:15 | Inpatient (IN) ==
[2021-09-10 14:54] LABS: ABS Eosinophils 0.1 10^3/ul (0-0.6); ABS Lymphocytes 1.2 10^3/ul (1.0-4.8); ABS Monocytes 1.1 10^3/ul (0-0.8); ABS Neutrophils 14.6 10^3/ul (1.5-7.7); Eosinophil % 0.5 %; Hematocrit 43 % (35-47); Hemoglobin 14.7 g/dL (12.0-16.0); Lymphocyte % 6.9 %; Mean Corpuscular HGB Conc 34 g/dL (31-36); Mean Corpuscular Hemoglobin 31 pg (27-31); Mean Corpuscular Volume 90 fL (80-97); Mean Platelet Volume 9.3 fL (7.4-10.4); Platelet Count 211 10^3/uL (150-450); Red Blood Count 4.79 10^6 /uL (3.70-4.87); Red Cell Distribution Width 14 % (10-15); White Blood Count 16.9 10^3/uL (3.5-10.8)
[2021-09-10 16:02] LABS: Albumin 2.8 g/dL (3.2-5.2); Albumin/Globulin Ratio 1.6 (1-3); Globulin 1.8 g/dL (2-4); Potassium 3.1 mmol/L (3.5-5.0); Total Bilirubin 0.4 mg/dL (0.2-1.0); Total Protein 4.6 g/dL (6.4-8.9); eGFR CKD-EPI 95.3 (>60)
[2021-09-10 16:06] LABS: Calcium 6.4 mg/dL (8.6-10.3)
[2021-09-10] MEDS ORDERED: CALCIUM GLUCONATE 1GM/50ML NS 1 GM/50 ML BAG IV ONE (16:06)
[2021-09-10 16:23] LABS: High Sensitivity Troponin 1 Hr 3 pg/mL (<15)
[2021-09-10] MEDS ORDERED: cefTRIAXone 2 GM ADDV.VIAL 2 GM in NS 0.9% 100 ml BAG 100 ML IV ONE (17:15)
[2021-09-10] MEDS ORDERED: Potassium Chlor 20 meq TAB.ER PO ONE (17:47)
[2021-09-10 18:46] LABS: Urine Appearance Cloudy; Urine Bilirubin Negative (Negative); Urine Blood Negative (Negative); Urine Color Yellow; Urine Glucose Negative (Negative); Urine Ketones Negative (Negative); Urine Nitrite Positive (Negative); Urine Protein Negative (Negative); Urine Specific Gravity 1.018 (1.002-1.030); Urine Urobilinogen Negative (Negative)
[2021-09-10 19:09] LABS: Urine Bacteria 1+ (Absent); Urine Red Blood Cell Trace(0-2/hpf) (Absent); Urine Squamous Epithelial Cell Present (Absent); Urine White Blood Cell 3+(>20/hpf) (Absent)
[2021-09-10] MEDS ORDERED: Magnesium Hydroxide LIQ 30 ML UDC PO PRN (19:13)
[2021-09-10] MEDS ORDERED: Albuterol HFA INHALER 8 gm MDI INH PRN (19:13)
[2021-09-10 20:01] LABS: PCO2 Arterial 46 mmHg (35-45); PO2 Arterial 81 mmHg (80-100)
[2021-09-10] MEDS ORDERED: Iohexol 350 (CONTRAST) 500 ML MDV IV ONE (20:10)
[2021-09-10 22:58] LABS: Magnesium 1.2 mg/dL (1.9-2.7); Phosphorus 2.7 mg/dL (2.5-5.0)
[2021-09-10 23:26] LABS: Vitamin D Total 25(OH) 17.5 ng/mL (20-50)
[2021-09-10] MEDS ORDERED: Magnesium Sulf 4 GM/100 ML IV 4,000 MG/100 ML BAG IVPB ONE (23:41)
[2021-09-11] MEDS: Docusate LIQ 100 MG/10 ML UDC PO SCH ×3 (00:10→21:48)
[2021-09-11] MEDS: Senna TAB 8.6 mg TAB PO SCH ×3 (00:11→21:48)
[2021-09-11] MEDS: Magnesium Sulfate 2 GM IV (Premix) IVPB SCH ×2 (00:14→01:22)
[2021-09-11] MEDS: Mometasone/Formoter 100/5 MDI INH SCH ×3 (00:24→20:32)
[2021-09-11 00:33] LABS: Calcium (PTH Intact) 8.9 mg/dL (8.6-10.3)
[2021-09-11 06:00] LABS: ABS Basophils 0.1 10^3/ul (0-0.2); ABS Eosinophils 0.2 10^3/ul (0-0.6); ABS Lymphocytes 2.6 10^3/ul (1.0-4.8); ABS Monocytes 1.3 10^3/ul (0-0.8); ABS Neutrophils 9.5 10^3/ul (1.5-7.7); Eosinophil % 1.1 %; Hematocrit 41 % (35-47); Hemoglobin 13.8 g/dL (12.0-16.0); Lymphocyte % 19.2 %; Mean Corpuscular HGB Conc 34 g/dL (31-36); Mean Corpuscular Hemoglobin 30 pg (27-31); Mean Corpuscular Volume 91 fL (80-97); Mean Platelet Volume 8.8 fL (7.4-10.4); Nucleated Red Blood Cells % 0.1; Platelet Count 183 10^3/uL (150-450); Red Blood Count 4.56 10^6 /uL (3.70-4.87); Red Cell Distribution Width 14 % (10-15); White Blood Count 13.7 10^3/uL (3.5-10.8)
[2021-09-11 06:42] LABS: Albumin 3.5 g/dL (3.2-5.2); Calcium 8.9 mg/dL (8.6-10.3); Potassium 4.8 mmol/L (3.5-5.0); Total Bilirubin 0.5 mg/dL (0.2-1.0)
[2021-09-11 06:48] LABS: Albumin/Globulin Ratio 1.3 (1-3); Globulin 2.7 g/dL (2-4); Total Protein 6.2 g/dL (6.4-8.9); eGFR CKD-EPI 88.5 (>60)
[2021-09-11] MEDS: DULoxetine DR 30 mg CAP PO SCH (08:58)
[2021-09-11] MEDS ORDERED: Potassium Chlor 10 meq TAB PO SCH (09:00)
[2021-09-11 10:30] LABS: Magnesium 2.8 mg/dL (1.9-2.7)
[2021-09-11] MEDS ORDERED: Furosemide 20 mg/2 ml IV VIAL IV SLOW PU ONE (15:40)
[2021-09-11] MEDS ORDERED: cefTRIAXone 1 gm/50 mL NS BAG 1 GM/50 ML BAG IVPB SCH (20:00)
[2021-09-12 06:04] LABS: ABS Basophils 0.1 10^3/ul (0-0.2); ABS Eosinophils 0.2 10^3/ul (0-0.6); ABS Lymphocytes 2.9 10^3/ul (1.0-4.8); ABS Monocytes 1.2 10^3/ul (0-0.8); ABS Neutrophils 7.8 10^3/ul (1.5-7.7); Eosinophil % 1.9 %; Hematocrit 41 % (35-47); Hemoglobin 13.7 g/dL (12.0-16.0); Lymphocyte % 23.6 %; Mean Corpuscular HGB Conc 34 g/dL (31-36); Mean Corpuscular Hemoglobin 31 pg (27-31); Mean Corpuscular Volume 91 fL (80-97); Mean Platelet Volume 9.5 fL (7.4-10.4); Platelet Count 180 10^3/uL (150-450); Red Blood Count 4.44 10^6 /uL (3.70-4.87); Red Cell Distribution Width 15 % (10-15); White Blood Count 12.2 10^3/uL (3.5-10.8)
[2021-09-12 06:36] LABS: Calcium 8.8 mg/dL (8.6-10.3); Magnesium 2.3 mg/dL (1.9-2.7); Potassium 4.4 mmol/L (3.5-5.0)
[2021-09-12] MEDS: Mometasone/Formoter 100/5 MDI INH SCH (07:48)
[2021-09-12] MEDS: DULoxetine DR 30 mg CAP PO SCH (09:11)
[2021-09-12] MEDS: Senna TAB 8.6 mg TAB PO SCH (09:11)
[2021-09-12] MEDS: Docusate LIQ 100 MG/10 ML UDC PO SCH (09:12)
[2021-09-12 11:01] VITALS: BP 125/74
[2021-09-12 11:45] LABS: C Reactive Protein 120.08 mg/L (<8.01)
== END 2021-09-12 15:00 | DRG 872 ==
LOC: ED 14:15 → EDHOLD 19:05 → MED 21:31
PROVIDERS: ADMIT Internal Medicine; ATTEND Internal Medicine